=== PATIENT | female | born 1990 | race Caucasian/White ===

== ENCOUNTER → 2017-09-29 | Outpatient (CLI) | payer OTHER | LOC: BMCIMAGING 15:26 | PROVIDERS: ATTEND Family Medicine | DX: S91.331A Puncture wound without foreign body, right foot, initial encounter (principal) ==

== ENCOUNTER → 2018-06-24 | Outpatient (CLI) | payer OTHER | LOC: BMCIMAGING 14:54 | PROVIDERS: ATTEND Emergency Medicine | DX: S59.901A Unspecified injury of right elbow, initial encounter (principal) ==